=== PATIENT | female | born 1990 | race Caucasian/White ===

== ENCOUNTER 2016-04-21 09:52 | Emergency (ER) | payer OTHER ==
[2015-07-12 04:32] VITALS: BMI 30.9
[~2016-04-21 09:52] MED LIST: IMITREX100 MG PO; PROTONIX40 MG PO
[2016-04-21 10:29] LABS: BASOPHILS 0.2 % (0.0-2.0); EOSINOPHILS 1.1 % (0-7); HEMATOCRIT 42.6 % (36.0-48.0); HEMOGLOBIN 14.8 g/dL (12-16); IMMATURE GRANULOCYTES 0.1 % (0-5); LYMPHOCYTES 24.2 % (15-50); MCH 32.2 pg (26.0-34.0); MCHC 34.7 g/dL (31.0-37.0); MCV 92.8 fL (80.0-100.0); MEAN PLATELET VOLUME 10.1 fL (7.4-10.4); MONOCYTES 6.3 % (2-11); NEUTROPHILS 68.1 % (40-80); RBC 4.59 10x6/uL (4.00-5.40); RDW 12.6 % (11.5-14.5); WBC 8.2 10x3/uL (4.8-10.8)
[2016-04-21 10:46] LABS: PLATELET COUNT 287 10x3/uL (130-400)
[2016-04-21 10:49] LABS: HCG SERUM POSITIVE (NEGATIVE)
[2016-04-21 10:50] LABS: APPEARANCE HAZY (CLEAR); BACTERIA FEW /hpf (NONE SEEN); BILIRUBIN NEGATIVE (NEGATIVE); COLOR YELLOW (YELLOW); EPITHELIAL CELLS 0-5 /hpf (0-5); GLUCOSE NEGATIVE (NEGATIVE); KETONE NEGATIVE (NEGATIVE); LEUKOCYTE ESTERASE TRACE (NEGATIVE); MUCUS >1+ /lpf (NONE SEEN); NITRITE NEGATIVE (NEGATIVE); PROTEIN TRACE mg/dL (NEGATIVE); RED CELLS - URINE >50 /hpf (0-5); SPECIFIC GRAVITY 1.015 (1.005-1.020); WHITE CELLS - URINE RARE /hpf (0-5)
== END 2016-04-21 12:50 | disposition home or self-care (01) ==
LOC: D.ER 09:52
PROVIDERS: Emergency Medicine; Family Medicine
DX: O20.0 Threatened abortion (principal)

== ENCOUNTER 2016-05-01 10:04 | Emergency (ER) | payer OTHER ==
[2015-07-12 04:32] VITALS: BMI 30.9
[2016-05-01 11:07] LABS: APPEARANCE HAZY (CLEAR); BILIRUBIN NEGATIVE (NEGATIVE); COLOR YELLOW (YELLOW); GLUCOSE NEGATIVE (NEGATIVE); KETONE SMALL mg/dL (NEGATIVE); LEUKOCYTE ESTERASE 1+ (NEGATIVE); NITRITE NEGATIVE (NEGATIVE); PROTEIN NEGATIVE (NEGATIVE); UROBILINOGEN NORMAL (NORMAL)
[2016-05-01 11:08] LABS: BACTERIA MODERATE /hpf (NONE SEEN); EPITHELIAL CELLS 0-5 /hpf (0-5); MUCUS <1+ /lpf (NONE SEEN); WHITE CELLS - URINE 0-5 /hpf (0-5)
[2016-05-01 11:09] LABS: HEMATOCRIT 39.8 % (36.0-48.0); HEMOGLOBIN 14.2 g/dL (12-16); LYMPHOCYTES 19.4 % (15-50); MCHC 35.7 g/dL (31.0-37.0); MCV 89.6 fL (80.0-100.0); MEAN PLATELET VOLUME 9.7 fL (7.4-10.4); NEUTROPHILS 76.1 % (40-80); PLATELET COUNT 251 10x3/uL (130-400); RBC 4.44 10x6/uL (4.00-5.40); RDW 12.6 % (11.5-14.5); WBC 8.9 10x3/uL (4.8-10.8)
== END 2016-05-01 12:03 | disposition home or self-care (01) ==
LOC: D.ER 10:04
PROVIDERS: Emergency Medicine; Nurse Practitioner Family
DX: O20.0 Threatened abortion (principal); N93.9 Abnormal uterine and vaginal bleeding, unspecified; N39.0 Urinary tract infection, site not specified

== ENCOUNTER 2016-05-13 16:54 | Emergency (ER) | payer OTHER ==
[2015-07-12 04:32] VITALS: BMI 30.9
[2016-05-13 17:14] LABS: BASOPHILS 0.1 % (0.0-2.0); EOSINOPHILS 0.7 % (0-7); HEMATOCRIT 38.3 % (36.0-48.0); HEMOGLOBIN 13.4 g/dL (12-16); IMMATURE GRANULOCYTES 0.2 % (0-5); LYMPHOCYTES 15.4 % (15-50); MCH 32.6 pg (26.0-34.0); MCV 93.2 fL (80.0-100.0); MEAN PLATELET VOLUME 9.9 fL (7.4-10.4); MONOCYTES 5.5 % (2-11); NEUTROPHILS 78.1 % (40-80); PLATELET COUNT 277 10x3/uL (130-400); RBC 4.11 10x6/uL (4.00-5.40); RDW 12.8 % (11.5-14.5)
== END 2016-05-13 18:57 | disposition home or self-care (01) ==
LOC: D.ER 16:54
PROVIDERS: Emergency Medicine
DX: N93.9 Abnormal uterine and vaginal bleeding, unspecified (principal); R10.2 Pelvic and perineal pain; O20.0 Threatened abortion; Z3A.08 8 weeks gestation of pregnancy

== ENCOUNTER 2016-12-08 23:06 | Emergency (ER) | payer OTHER ==
[2015-07-12 04:32] VITALS: BMI 30.9
[2016-12-09 00:30] LABS: HEMOGLOBIN 15.9 g/dL (12-16); LYMPHOCYTES 14.9 % (15-50); MCH 32.4 pg (26.0-34.0); MCHC 36.1 g/dL (31.0-37.0); MCV 89.6 fL (80.0-100.0); MEAN PLATELET VOLUME 9.9 fL (7.4-10.4); PLATELET COUNT 309 10x3/uL (130-400); RBC 4.91 10x6/uL (4.00-5.40); RDW 12.5 % (11.5-14.5); WBC 9.6 10x3/uL (4.8-10.8)
[2016-12-09 00:38] LABS: ALKALINE PHOSPHATASE 98 U/L (46-116); ALT (SGPT) 51 U/L (10-68); CALC OSMOLALITY 289 mosm/kg (275-300); CALCIUM 9.2 mg/dL (8.5-10.1); CARBON DIOXIDE 26.9 mmol/L (21.0-32.0); CHLORIDE - SERUM 104 mmol/L (98-107); CREATININE - SERUM 0.6 mg/dL (0.6-1.3); GLUCOSE 102 mg/dL (74-106); LIPASE 332 U/L (73-393); POTASSIUM - SERUM 3.3 mmol/L (3.5-5.1); PROTEIN - SERUM 7.5 g/dL (6.4-8.2); SODIUM 145 mmol/L (136-145); UREA NITROGEN 14 mg/dL (7-18); eGFR NON AFRICAN AMERICAN > 90 mL/min (90-120)
[2016-12-09 00:45] LABS: HCG URINE NEGATIVE (NEGATIVE)
[2016-12-09 01:01] LABS: APPEARANCE HAZY (CLEAR); BILIRUBIN NEGATIVE (NEGATIVE); COLOR YELLOW (YELLOW); GLUCOSE NEGATIVE (NEGATIVE); KETONE NEGATIVE (NEGATIVE); LEUKOCYTE ESTERASE TRACE (NEGATIVE); NITRITE NEGATIVE (NEGATIVE); PROTEIN 1+ mg/dL (NEGATIVE); UROBILINOGEN NORMAL (NORMAL)
[2016-12-09 01:02] LABS: BACTERIA MODERATE /hpf (NONE SEEN); EPITHELIAL CELLS 0-5 /hpf (0-5); MUCUS >1+ /lpf (NONE SEEN)
== END 2016-12-09 01:29 | disposition home or self-care (01) ==
LOC: D.ER 23:06
PROVIDERS: Emergency Medicine
DX: J20.9 Acute bronchitis, unspecified (principal)

== ENCOUNTER 2017-03-11 16:29 | Emergency (ER) | payer OTHER ==
[2015-07-12 04:32] VITALS: BMI 30.9
[2017-03-11 17:49] LABS: HCG URINE NEGATIVE (NEGATIVE)
[2017-03-11 17:52] LABS: APPEARANCE CLEAR (CLEAR); BILIRUBIN NEGATIVE (NEGATIVE); COLOR YELLOW (YELLOW); GLUCOSE NEGATIVE (NEGATIVE); KETONE NEGATIVE (NEGATIVE); NITRITE NEGATIVE (NEGATIVE); PROTEIN NEGATIVE (NEGATIVE); UROBILINOGEN NORMAL (NORMAL)
[2017-03-11 17:54] LABS: BACTERIA FEW /hpf (NONE SEEN); EPITHELIAL CELLS 0-5 /hpf (0-5); RED CELLS - URINE 0-5 /hpf (0-5); WHITE CELLS - URINE OCC /hpf (0-5)
== END 2017-03-11 18:35 | disposition home or self-care (01) ==
LOC: D.ER 16:29
PROVIDERS: Emergency Medicine
DX: R10.9 Unspecified abdominal pain (principal); R11.10 Vomiting, unspecified; N93.9 Abnormal uterine and vaginal bleeding, unspecified; F17.200 Nicotine dependence, unspecified, uncomplicated

== ENCOUNTER 2018-03-01 17:12 | Emergency (ER) | payer SELFPAY ==
[~2018-03-01] VITALS: Ht 162.6 cm; Wt 86.4 kg
[2018-03-01 17:22] VITALS: Ht 162.6 cm; Wt 86.4 kg
[2018-03-01 18:07] LABS: BASOPHILS 0.1 % (0-2); EOSINOPHILS 0.2 % (0-7); HEMATOCRIT 45.4 % (36.0-48.0); IMMATURE GRANULOCYTES 0.2 % (0-5); LYMPHOCYTES 15.5 % (15-50); MCH 32.3 pg (26.0-34.0); MCHC 35.2 g/dL (31.0-37.0); MCV 91.5 fL (80.0-100.0); MEAN PLATELET VOLUME 10.3 fL (7.4-10.4); MONOCYTES 3.6 % (2-11); NEUTROPHILS 80.4 % (40-80); PLATELET COUNT 274 10x3/uL (130-400); RBC 4.96 10x6/uL (4.00-5.40); RDW 11.9 % (11.5-14.5); WBC 8.6 10x3/uL (4.8-10.8)
[2018-03-01 18:09] LABS: APPEARANCE CLEAR (CLEAR); BILIRUBIN NEGATIVE (NEGATIVE); COLOR YELLOW (YELLOW); GLUCOSE NEGATIVE (NEGATIVE); KETONE NEGATIVE (NEGATIVE); NITRITE NEGATIVE (NEGATIVE); PROTEIN NEGATIVE (NEGATIVE); UROBILINOGEN NORMAL (NORMAL)
[2018-03-01 18:10] LABS: BACTERIA FEW /hpf (NONE SEEN); EPITHELIAL CELLS OCC /hpf (0-5); RED CELLS - URINE 0-5 /hpf (0-5); WHITE CELLS - URINE OCC /hpf (0-5)
[2018-03-01 18:13] LABS: HCG URINE NEGATIVE (NEGATIVE)
[2018-03-01 18:16] LABS: ALBUMIN 3.7 g/dL (3.4-5.0); ALKALINE PHOSPHATASE 99 U/L (46-116); ALT (SGPT) 372 U/L (10-68); AMYLASE - SERUM 47 U/L (25-115); BILIRUBIN - TOTAL 0.73 mg/dL (0.2-1.3); CALC OSMOLALITY 271 mosm/kg (275-300); CALCIUM 9.4 mg/dL (8.5-10.1); CHLORIDE - SERUM 101 mmol/L (98-107); CREATININE - SERUM 0.5 mg/dL (0.6-1.3); GLUCOSE 100 mg/dL (74-106); LIPASE 84 U/L (73-393); POTASSIUM - SERUM 4.1 mmol/L (3.5-5.1); PROTEIN - SERUM 7.7 g/dL (6.4-8.2); SODIUM 137 mmol/L (136-145); UREA NITROGEN 8 mg/dL (7-18); eGFR NON AFRICAN AMERICAN > 90 mL/min (90-120)
[2018-03-01 21:00] VITALS: BP 132/84
[2018-03-03 09:19] LABS: HEPATITIS C ANTIBODY <0.1 S/CO RAT (0.0-0.9)
== END 2018-03-01 22:13 | disposition home or self-care (01) ==
LOC: D.ER 17:12
PROVIDERS: Family Medicine
DX: R10.9 Unspecified abdominal pain (principal); R79.89 Other specified abnormal findings of blood chemistry; R11.10 Vomiting, unspecified; G40.909 Epilepsy, unspecified, not intractable, without status epilepticus